=== PATIENT | female | born 1980 | race Caucasian/White ===

== ENCOUNTER → 2024-09-11 | Outpatient (REF) | payer OTHER | LOC: US 08:52 | PROVIDERS: ATTEND Nurse Practitioner | DX: R10.9 Unspecified abdominal pain (principal) | CPT/HCPCS: 76700; 76856 ==

== ENCOUNTER → 2024-10-26 | Outpatient (REF) | payer OTHER ==
[~2024-10-26] MED LIST: IOPAMIDOL 370 MG/ML 100 ML INFUS..BTL INJ ONE
== END ==
LOC: CT 15:51
PROVIDERS: ATTEND Internal Medicine Gastroenterology
DX: R19.03 Right lower quadrant abdominal swelling, mass and lump (principal)
CPT/HCPCS: 74177; 81025; Q9967